=== PATIENT | male | born 1980 | race Two or more races ===

== ENCOUNTER → 2019-04-30 | Outpatient (CLI) | payer OTHER | END | disposition home or self-care (01) | LOC: SONOGRAMA 15:37 | DX: N39.0 Urinary tract infection, site not specified (principal); N23 Unspecified renal colic ==

== ENCOUNTER 2020-09-30 21:40 | Emergency (ER) | payer OTHER ==
[~2020-09-30] VITALS: Ht 177.8 cm; Wt 77.1 kg
[2020-10-01] MEDS ORDERED: SURFAK240 MG PO (02:53)
[2020-10-01] MEDS ORDERED: PREPARATION H C26 GM RECTAL (02:53)
== END 2020-10-01 03:00 | disposition home or self-care (01) ==
LOC: ER 21:40
DX: K64.8 Other hemorrhoids (principal); K92.1 Melena